=== PATIENT | female | born 1945 | race African-American/Black ===

== ENCOUNTER 2019-01-28 13:50 | Outpatient (CLI) | payer MEDICARE ==
--- NOTE | 2019-01-28 16:03 | ULT ---
Ultrasound thyroid: DATE: 01/28/2019 HISTORY: 73-year-old female with ICD-10: "E04.1, nontoxic single thyroid nodule." COMPARISON: None available FINDINGS: Isthmus: 0.4 cm AP. Right lobe: 5.0 x 1.9 x 1.8 cm. Left lobe: 10.8 x 4.9 x 5.2 cm. Several thyroid nodules: 1.) Right upper pole: 0.6 x 0.5 x 0.4 cm hypoechoic solid nodule. Composition: Solid: 2 points Echogenicity: Hypoechoic: 2 points Shape: Wider than tall: 0 points Margin: Smooth: 0 points Echogenic foci: None: 0 points Total points: 4 TIRADS category 4: Moderately suspicious. Recommendation for category 4 lesions: FNA if greater than or equal to 1.5 cm. Follow-up if greater t wasserman or equal to 1 cm at 1, 2, 3, and 5 years. This lesion is smaller than 1 cm, and therefore no follow-up and no FNA is recommended. 2) right upper pole: 0.7 x 0.4 x 0.7 cm hypoechoic solid nodule. Composition: Solid: 2 points Echogenicity: Hypoechoic: 2 points Shape: Wider than tall: 0 points Margin: Smooth: 0 points Echogenic foci: None: 0 points Total points: 4 TIRADS category 4: Moderately suspicious. Recommendation for category 4 lesions: FNA if greater than or equal to 1.5 cm. Follow-up if greater t wasserman or equal to 1 cm at 1, 2, 3, and 5 years. This lesion is smaller than 1 cm, and therefore no follow-up and no FNA is recommended. 3) 2.4 x 1.0 x 1.2 cm solid nodule at lateral aspect of mid and lower poles with slightly heterogeneo us echogenicity. Composition: Solid: 2 points Echogenicity: Hypoechoic: 2 points Shape: Wider than tall: 0 points Margin: Smooth: 0 points Echogenic foci: None: 0 points Total points: 4 TIRADS category 4: Moderately suspicious. Recommendation for category 4 lesions: FNA if greater than or equal to 1.5 cm. Follow-up if greater t wasserman or equal to 1 cm at 1, 2, 3, and 5 years. 4) the entire left lobe is completely filled and dominated by a large solid nodule with heterogeneous echogenicity. Composition: Solid: 2 points Echogenicity: Hypoechoic: 2 points Shape: Wider than tall: 0 points Margin: Smooth: 0 points Echogenic foci: None: 0 points Total points: 4 TIRADS category 4: Moderately suspicious. Recommendation for category 4 lesions: FNA if greater than or equal to 1.5 cm. Follow-up if greater t wasserman or equal to 1 cm at 1, 2, 3, and 5 years. IMPRESSION: 1. A total of at least 4 solid nodules, all of them with TIRADS category 4. 2. For the 2 tiny 1's at the right upper pole, no further workup is necessary. 3. Recommend ultrasound-guided fine-needle aspiration for the very large nodule which occupies the en tire left lobe. 4. Recommend ultrasound-guided fine-needle aspiration for the 2.4 cm nodule in the right mid and lowe r poles.
== END 2019-01-28 13:51 | disposition home or self-care (01) ==
LOC: SCSULT 13:50
PROVIDERS: ATTEND Family Medicine
DX: E04.2 Nontoxic multinodular goiter (principal)
CPT/HCPCS: 76536

== ENCOUNTER 2019-02-08 08:59 | Outpatient (CLI) | payer MEDICARE ==
--- NOTE | 2019-02-22 16:48 | MMO ---
Bilateral MAMMO Bilat Screen [facility]. CLINICAL HISTORY: Patient is 73 years old and is seen for screening. The patient has no family history of breast cancer. The patient has no personal history of cancer. The patient has a history of left needle biopsy more than 10 years ago - benign. VIEWS: The views performed were: bilateral craniocaudal with tomosynthesis and bilateral mediolateral oblique with tomosynthesis. FILMS COMPARED: The present examination has been compared to prior imaging studies performed at [facility] on 09/05/2016, 09/24/2016 and 05/12/2017. MAMMOGRAM FINDINGS: There are scattered fibroglandular densities. Benign calcifications are noted bilaterally. There are no suspicious masses, suspicious calcifications, or new areas of architectural distortion. IMPRESSION: THERE IS NO MAMMOGRAPHIC EVIDENCE OF MALIGNANCY. A ROUTINE FOLLOW-UP MAMMOGRAM IN 1 YEAR IS RECOMMENDED. THE RESULTS OF THIS EXAM WERE SENT TO THE PATIENT. ACR BI-RADS Category 2 - Benign finding MAMMOGRAPHY NOTE: 1. A negative mammogram report should not delay a biopsy if a dominant of clinically suspicious mass is present. 2. Approximately 10% to 15% of breast cancers are not detected by mammography. 3. Adenosis and dense breasts may obscure an underlying neoplasm. Reported by: LAINA MACDONALD MD Electonically Signed: [id number]
== END 2019-02-08 09:00 | disposition home or self-care (01) ==
LOC: BICMAMMO 08:59
PROVIDERS: ATTEND Family Medicine
DX: Z12.31 Encounter for screening mammogram for malignant neoplasm of breast (principal)
CPT/HCPCS: 77063; 77067

== ENCOUNTER 2019-02-15 12:22 | Day surgery (SDC) | payer MEDICARE ==
[2019-02-15] MEDS ORDERED: Sodium Bicarbonate 2.5 MEQ/5 ML VIAL ONE (12:44)
[2019-02-15 13:09] VITALS: BMI 29.1
--- NOTE | 2019-02-15 14:26 | ULT ---
US Thyroid Needle Bx History: Thyroid nodules Comparison: Thyroid ultrasound January 28, 2019 Findings: Patient was brought to the ultrasound suite. All questions were answered. Informed consent was obtained. Timeout performed. Patient's neck was prepped and draped in normal sterile fashion. After adequate local anesthesia usin g a 25-gauge needle at total of 4 passes was obtained through the dominant right and left thyroid nodules. The patient tolerated the procedure well without complication. Impression: Technically successful ultrasound-guided bilateral thyroid fine-needle aspiration.
== END 2019-02-15 14:05 | disposition home or self-care (01) ==
LOC: ULT 12:22
PROVIDERS: ATTEND Specialist
PROC: 0GBG3ZX Excision of Left Thyroid Gland Lobe, Percutaneous Approach, Diagnostic (ICD-10-PCS; principal; 2019-02-15)
PROC: 0GBH3ZX Excision of Right Thyroid Gland Lobe, Percutaneous Approach, Diagnostic (ICD-10-PCS; 2019-02-15)
PROC: BG44ZZZ Ultrasonography of Thyroid Gland (ICD-10-PCS; 2019-02-15)
DX: E04.2 Nontoxic multinodular goiter (principal); E78.00 Pure hypercholesterolemia, unspecified; I10 Essential (primary) hypertension; Z79.84 Long term (current) use of oral hypoglycemic drugs; Z79.899 Other long term (current) drug therapy
CPT/HCPCS: 60100; 76942; 88173; 88305

== ENCOUNTER 2020-05-09 11:43 | Outpatient (CLI) | payer MEDICARE, BC ==
--- NOTE | 2020-05-09 12:40 | ULT ---
THYROID ULTRASOUND: INDICATION: Followup thyroid nodules. COMPARISON: Comparison is made to thyroid ultrasound exam of 01/28/2019. The patient had ultrasound-guided FNA of thyroid nodules bilaterally on 02/15/2019. FINDINGS: Both lobes are heterogeneous and have a similar appearance to the prior exam. Right lobe measurement: 5.4 x 1.4 x 2.1 cm. Left lobe measurement: 10.9 x 6.0 x 5.5 cm. In the right lobe, there continues to be a dominant irregularly shaped isoechoic nodule with cystic c omponents measuring 2.2 x 1.0 x 1.2 cm. This was biopsied previously according to technologist. It is unchanged in appearance. Two small nodules in the upper right lobe, each measuring 4-6 mm are again seen and appear stable. In the left lobe, there is a large heterogeneous nodule involving the entire left lobe. This was bio psied previously according to the technologist. IMPRESSION: Bilateral thyroid nodules which appear stable in appearance by ultrasound. POS: RICK
[2020-05-09 14:04] LABS: Hemoglobin A1c 5.7 % (4.0-6.0)
[2020-05-09 14:07] LABS: ALT (SGPT) 14 U/L (8-55); AST (SGOT) 14 U/L (5-34); Albumin 4.3 g/dL (3.4-4.8); Alkaline Phosphatase 78 U/L (40-110); Anion Gap 11 mmol/L (10-20); BUN (Urea Nitrogen) 18 mg/dL (9.8-20.1); Bilirubin, Total 0.6 mg/dL (0.2-1.2); Calc. Creatinine Clearance 0 mL/min (70-130); Calcium 10.3 mg/dL (7.8-10.44); Carbon Dioxide 31 mmol/L (23-31); Cardiac Risk 4.8 (Less than 4.5); Chloride 102 mmol/L (98-107); Cholesterol 197 mg/dl (< 200 Desired); Estimated GFR-MDRD 65; Globulin 2.6 g/dL (2.4-3.5); Glucose 103 mg/dL (83-110); HDL Cholesterol 41 mg/dL (>60 Neg Risk); LDL Cholesterol, Calculated 137 mg/dL; Potassium 3.7 mmol/L (3.5-5.1); Protein, Total 6.9 g/dL (6.0-8.3); Sodium 140 mmol/L (136-145); Triglycerides 95 mg/dL (Less than 150)
[2020-05-09 14:28] LABS: #Basophils 0.1 thou/uL (0.0-0.2); #Eosinphils 0.2 thou/uL (0.0-0.7); #Lymphocytes 2.9 thou/uL (1.20-3.40); #Monocytes 0.5 thou/uL (0.11-0.59); #Neutrophils 4.3 thou/uL (1.40-6.50); %Basophils 0.7 % (0.0-1.0); %Eosinophils 2.5 % (0.0-10.0); %Lymphocytes 36.6 % (21.0-51.0); %Monocytes 6.5 % (0.0-10.0); %Neutrophils 53.7 % (42.0-75.0); Hemoglobin 13.8 g/dL (12.0-16.0); Mean Corpuscular HGB CONC 31.6 g/dL (32.0-36.0); Mean Corpuscular Volume 85.3 fL (78.0-98.0); Mean Platelet Volume 8.9 fL (7.4-10.4); Platelet Count 299 thou/uL (130-400); RBC Distribution Width 14.1 % (11.5-14.5); Red Blood Cell (RBC) Count 5.13 mill/uL (4.20-5.40)
== END 2020-05-09 11:44 | disposition home or self-care (01) ==
LOC: SCSULT 11:43
PROVIDERS: ATTEND Specialist
DX: E04.2 Nontoxic multinodular goiter (principal); E11.9 Type 2 diabetes mellitus without complications; E78.2 Mixed hyperlipidemia
CPT/HCPCS: 36415; 76536; 80053; 80061; 83036; 85025

== ENCOUNTER 2020-05-29 13:28 | Outpatient (CLI) | payer MEDICARE, BC ==
--- NOTE | 2020-05-29 14:45 | MMO ---
Bilateral MAMMO Bilat Screen [facility]. CLINICAL HISTORY: Patient is 75 years old and is seen for screening. The patient has no family history of breast cancer. The patient has no personal history of cancer. The patient has a history of left needle biopsy more than 10 years ago - benign. VIEWS: The views performed were: bilateral craniocaudal with tomosynthesis and bilateral mediolateral oblique with tomosynthesis. FILMS COMPARED: The present examination has been compared to prior imaging studies performed at [facility] on 09/24/2016 and 05/12/2017, and at [facility] on 02/08/2019. This study has been interpreted with the assistance of computer-aided detection. MAMMOGRAM FINDINGS: There are scattered fibroglandular densities. Benign calcifications are noted bilaterally. There are no suspicious masses, suspicious calcifications, or new areas of architectural distortion. IMPRESSION: THERE IS NO MAMMOGRAPHIC EVIDENCE OF MALIGNANCY. A ROUTINE FOLLOW-UP MAMMOGRAM IN 1 YEAR IS RECOMMENDED. THE RESULTS OF THIS EXAM WERE SENT TO THE PATIENT. ACR BI-RADS Category 2 - Benign finding MAMMOGRAPHY NOTE: 1. A negative mammogram report should not delay a biopsy if a dominant of clinically suspicious mass is present. 2. Approximately 10% to 15% of breast cancers are not detected by mammography. 3. Adenosis and dense breasts may obscure an underlying neoplasm. Reported by: LAINA MACDONALD MD Electonically Signed: [id number]
== END 2020-05-29 13:29 | disposition home or self-care (01) ==
LOC: BICMAMMO 13:28
PROVIDERS: ATTEND Family Medicine
DX: Z12.31 Encounter for screening mammogram for malignant neoplasm of breast (principal); Z91.89 Other specified personal risk factors, not elsewhere classified
CPT/HCPCS: 77063; 77067

== ENCOUNTER 2021-01-03 14:47 | Outpatient (CLI) | payer MEDICARE | END 2021-01-03 14:48 | disposition home or self-care (01) | LOC: BICMAMMO 14:47 | PROVIDERS: ATTEND Family Medicine | DX: Z13.820 Encounter for screening for osteoporosis (principal); M85.851 Other specified disorders of bone density and structure, right thigh | CPT/HCPCS: 77080 ==

== ENCOUNTER 2021-03-18 17:28 | Outpatient (CLI) | payer MEDICARE, BC ==
[2021-03-18 18:28] LABS: Hemoglobin 13.1 g/dL (12.0-15.5); Mean Corpuscular Hemoglobin 25.5 pg (27.0-33.0); Mean Corpuscular Volume 82.1 fl (81.6-98.3); Mean Platelet Volume 11.9 fl (7.4-10.4); Platelet Count 277 10x3/uL (150-450); RBC Distribution Width 15.9 % (11.5-14.5); Red Blood Cell (RBC) Count 5.14 10x6/uL (3.90-5.03); White Blood Cell (WBC) Count 8.4 10x3/uL (3.5-10.5)
[2021-03-18 18:38] LABS: Anion Gap 13 mmol/L (10-20); BUN (Urea Nitrogen) 20 mg/dL (9.8-20.1); Calc. Creatinine Clearance 0 mL/min (70-130); Calcium 10.5 mg/dL (7.8-10.44); Carbon Dioxide 25 mmol/L (23-31); Chloride 107 mmol/L (98-107); Glucose 83 mg/dL (83-110); Potassium 4.3 mmol/L (3.5-5.1); Sodium 141 mmol/L (136-145)
[2021-03-19 07:49] LABS: SARS-CoV-2 PCR by NAA Not Detected (NotDetected)
== END 2021-03-18 17:29 | disposition home or self-care (01) ==
LOC: LABBT 17:28
PROVIDERS: ATTEND Specialist
DX: Z01.818 Encounter for other preprocedural examination (principal); Z20.822 Contact with and (suspected) exposure to COVID-19
CPT/HCPCS: 80048; 85027; 93005; 93010; U0003; U0005

== ENCOUNTER 2021-04-15 16:47 | Outpatient (CLI) | payer MEDICARE ==
[2021-04-15 17:32] LABS: Hemoglobin 12.2 g/dL (12.0-15.5)
[2021-04-15 19:11] LABS: Anion Gap 12 mmol/L (10-20); BUN (Urea Nitrogen) 14 mg/dL (9.8-20.1); Calc. Creatinine Clearance 0 mL/min (70-130); Calcium 10.1 mg/dL (7.8-10.44); Carbon Dioxide 26 mmol/L (23-31); Chloride 106 mmol/L (98-107); Glucose 95 mg/dL (83-110); Potassium 4.3 mmol/L (3.5-5.1); Sodium 140 mmol/L (136-145)
[2021-04-16 09:02] LABS: SARS-CoV-2 PCR by NAA Not Detected (NotDetected)
== END 2021-04-15 16:48 | disposition home or self-care (01) ==
LOC: LABBT 16:47
PROVIDERS: ATTEND Specialist
DX: Z01.812 Encounter for preprocedural laboratory examination (principal); E21.3 Hyperparathyroidism, unspecified; E04.1 Nontoxic single thyroid nodule; Z20.822 Contact with and (suspected) exposure to COVID-19
CPT/HCPCS: 80048; 85014; 85018; U0003; U0005

== ENCOUNTER 2021-04-18 06:16 | Observation (INO) | payer MEDICARE ==
[2021-04-18] MEDS ORDERED: Bacitracin Zinc Ointment 30 gm TUBE ONE (06:28)
[2021-04-18] MEDS ORDERED: Lidocaine 1% w/Epinephrine 1:100K 20 ML VIAL ONE (06:28)
[2021-04-18] MEDS ORDERED: Famotidine/PF 20 mg/2ml Vial ONE ×2 (07:21→07:33)
[2021-04-18] MEDS ORDERED: Fentanyl 100 MCG/2 ML VIAL ONE ×2 (07:33→11:00)
[2021-04-18] MEDS ORDERED: Lidocaine 1% PF 5 ML VIAL ONE (07:46)
[2021-04-18] MEDS ORDERED: Dexamethasone 20 MG/5 ML VIAL ONE (07:46)
[2021-04-18] MEDS ORDERED: PHENYLEPHRINE-NS 100 MCG/ML 10 ML SYRINGE ONE (07:46)
[2021-04-18] MEDS ORDERED: PROPOFOL 200 MG/20 ML VIAL ONE (07:46)
[2021-04-18] MEDS ORDERED: Rocuronium Bromide 10 MG/ML (10ML VIAL) ONE (07:46)
[2021-04-18] MEDS ORDERED: Ondansetron PF 4 MG/2 ML Vial ONE (07:46)
[2021-04-18] MEDS ORDERED: Succinylcholine 200 MG/10 ml SYRINGE FS ONE (07:46)
[2021-04-18] MEDS ORDERED: HYDROmorphone 2 MG/ML VIAL ONE (08:34)
[2021-04-18] MEDS ORDERED: Propofol 500 MG/50 ML VIAL ONE (08:34)
[2021-04-18] MEDS ORDERED: PACU-Morphine 4MG/ML VIAL SLOW IVP PRN (09:55)
[2021-04-18] MEDS ORDERED: Promethazine HCl 25 MG/ML VIAL IVPB PRN (09:55)
[2021-04-18] MEDS ORDERED: Promethazine HCl 25 MG/ML VIAL IM PRN (09:55)
[2021-04-18] MEDS ORDERED: Morphine 2 MG/ML VIAL SLOW IVP PRN ×2 (10:50)
[2021-04-18] MEDS ORDERED: Ondansetron ODT 4 MG TAB PO PRN (10:51)
[2021-04-18] MEDS ORDERED: HYDROcodone/Acetaminophen 7.5/325 mg Tablet PO PRN (10:52)
[2021-04-18] MEDS ORDERED: D5 1/4 NS w/20 mEq KCL 1,000 ML IV SCH (11:00)
[2021-04-18] MEDS ORDERED: Losartan 25 MG TAB PO SCH (14:00)
[2021-04-18] MEDS ORDERED: Loratadine 10 MG TAB PO SCH (14:00)
[2021-04-18 16:11] VITALS: BMI 29.4
[2021-04-18] MEDS: Calcium Carbonate 500 MG ChewTAB PO SCH ×2 (16:41→20:02)
[2021-04-18] MEDS: HYDROcodone/Acetaminophen 7.5/325 mg Tablet PO PRN (16:58)
[2021-04-18] MEDS ORDERED: hydrALAZINE 20 MG/ML VIAL SLOW IVP SCH (19:15)
[2021-04-19 04:43] VITALS: TEMP 98.1
[2021-04-19 08:09] VITALS: BP 154/70
[2021-04-19] MEDS: Calcium Carbonate 500 MG ChewTAB PO SCH (08:47)
[2021-04-19] MEDS: HYDROcodone/Acetaminophen 7.5/325 mg Tablet PO PRN (08:48)
[2021-04-19] MEDS ORDERED: Calcitriol 0.25 MCG CAP PO SCH (09:00)
[2021-04-19] MEDS ORDERED: Losartan 25 MG TAB PO SCH (09:00)
== END 2021-04-19 09:38 | disposition home or self-care (01) ==
LOC: SDC 06:16 → SJJU 10:45
PROVIDERS: ADMIT Specialist; ATTEND Specialist
PROC: 0GTG0ZZ Resection of Left Thyroid Gland Lobe, Open Approach (ICD-10-PCS; principal; 2021-04-18)
PROC: 0GBH0ZZ Excision of Right Thyroid Gland Lobe, Open Approach (ICD-10-PCS; 2021-04-18)
PROC: 0GBJ0ZZ Excision of Thyroid Gland Isthmus, Open Approach (ICD-10-PCS; 2021-04-18)
PROC: 0GTN0ZZ Resection of Right Inferior Parathyroid Gland, Open Approach (ICD-10-PCS; 2021-04-18)
DX: D35.1 Benign neoplasm of parathyroid gland (principal); E04.2 Nontoxic multinodular goiter; Z79.82 Long term (current) use of aspirin; Z79.899 Other long term (current) drug therapy; Z90.710 Acquired absence of both cervix and uterus; Z98.890 Other specified postprocedural states
CPT/HCPCS: 36415; 82310; 83970; 88305; 88307; 88331; 96374; 96375; G0378; J0360; J1100; J1170; J2270; J2405; J2704; J3010; J3480; J7042; S0028

== ENCOUNTER 2021-06-05 08:42 | Outpatient (CLI) | payer MEDICARE ==
[2021-06-05] MEDS ORDERED: Iopamidol-370 76% 500 ML 1 ML ONE (10:02)
== END 2021-06-05 08:43 | disposition home or self-care (01) ==
LOC: BICCT 08:42
PROVIDERS: ATTEND Family Medicine
DX: Z12.31 Encounter for screening mammogram for malignant neoplasm of breast (principal); E27.9 Disorder of adrenal gland, unspecified; N64.89 Other specified disorders of breast
CPT/HCPCS: 74170; 77063; 77067

== ENCOUNTER 2021-07-08 08:17 | Outpatient (CLI) | payer MEDICARE | END 2021-07-08 08:18 | disposition home or self-care (01) | LOC: BICMAMMO 08:17 | PROVIDERS: ATTEND Family Medicine | DX: R92.2 Inconclusive mammogram (principal) | CPT/HCPCS: G0279 ==

== ENCOUNTER 2022-07-15 12:51 | Outpatient (CLI) | payer MEDICARE | END 2022-07-15 12:52 | disposition home or self-care (01) | LOC: BICMAMMO 12:51 | PROVIDERS: ATTEND Family Medicine | DX: Z12.31 Encounter for screening mammogram for malignant neoplasm of breast (principal); R92.1 Mammographic calcification found on diagnostic imaging of breast; Z86.018 Personal history of other benign neoplasm | CPT/HCPCS: 77063; 77067 ==

== ENCOUNTER 2024-07-28 11:52 | Outpatient (CLI) | payer MEDICARE | END 2024-07-28 11:53 | disposition home or self-care (01) | LOC: BICMAMMO 11:52 | PROVIDERS: ATTEND Family Medicine | DX: Z12.31 Encounter for screening mammogram for malignant neoplasm of breast (principal); Z91.89 Other specified personal risk factors, not elsewhere classified | CPT/HCPCS: 77063; 77067 ==

== ENCOUNTER 2025-03-22 08:26 | Outpatient (CLI) | payer MEDICARE | END 2025-03-22 08:27 | disposition home or self-care (01) | LOC: BICMAMMO 08:26 | PROVIDERS: ATTEND Family Medicine | DX: N95.9 Unspecified menopausal and perimenopausal disorder (principal) | CPT/HCPCS: 77080 ==

== ENCOUNTER 2025-04-11 15:14 | Outpatient (CLI) | payer MEDICARE | END 2025-04-11 15:15 | disposition home or self-care (01) | LOC: RAD 15:14 | PROVIDERS: ATTEND Internal Medicine Cardiovascular Disease | DX: R06.02 Shortness of breath (principal) | CPT/HCPCS: 71046 ==